=== PATIENT | female | born 1940 | race Caucasian/White ===

== ENCOUNTER → 2016-05-05 | Outpatient (CLI) | payer BC ==
--- NOTE | 2016-05-05 15:37 | MAMMOGRAPHY REPORT ---
BILATERAL DIGITAL SCREENING MAMMOGRAM WITH CAD: 05/05/2016 CLINICAL HISTORY: Routine screening. Patient has no complaints. TECHNIQUE: Bilateral CC and MLO views were obtained. Current study was also evaluated with a Comput er Aided Detection (CAD) system. COMPARISON: Comparison is made to exams dated: 05/02/2015 mammogram, 04/28/2013 mammogram, 05/01/2014 ma mmogram, 04/22/2012 mammogram, 04/21/2011 mammogram, and 04/19/2010 mammogram - [facility] enter. BREAST COMPOSITION: There are scattered areas of fibroglandular density in both breasts. FINDINGS: The MLO views are suboptimal due to inability the patient adequately position for the exam , despite several repositioning attempts. There are stable punctate benign-appearing microcalcifica tions in the breasts. No suspicious mass, architectural distortion or cluster of suspicious microca lcifications is seen. IMPRESSION: ACR BI-RADS CATEGORY 1: NEGATIVE There is no mammographic evidence of malignancy. A 1 year screening mammogram is recommended. The p atient will receive written notification of the results. Approximately 10% of breast cancers are not detected with mammography. A negative mammographic repor t should not delay biopsy if a clinically suggestive mass is present. Zunilda Saucedo M.D. ay/:05/05/2016 14:47:45 Camera Control Operator: Gina CHRISTINA(Frank)(M), [facility] letter sent: Normal 1/2 BI-RADS Code: ACR BI-RADS Category 1: Negative
== END | disposition home or self-care (01) ==
LOC: C.MAMM 13:17
PROVIDERS: ATTEND Family Medicine
DX: Z12.31 Encounter for screening mammogram for malignant neoplasm of breast (principal)

== ENCOUNTER → 2017-05-07 | Outpatient (CLI) | payer BC ==
[~2017-05-07] MED LIST: CALC-51 PO; CYCL0.052 OPB
--- NOTE | 2017-05-07 14:30 | MAMMOGRAPHY REPORT ---
BILATERAL DIGITAL SCREENING MAMMOGRAM TOMOSYNTHESIS WITH CAD: 05/07/2017 CLINICAL HISTORY: Routine screening. Patient has no complaints. TECHNIQUE: Breast tomosynthesis in addition to standard 2D mammography was performed. Current study was also evaluated with a Computer Aided Detection (CAD) system. COMPARISON: Comparison is made to exams dated: 05/05/2016 mammogram, 05/02/2015 mammogram, 05/01/2014 mamm ogram, 04/28/2013 mammogram, 04/22/2012 mammogram, and 04/21/2011 mammogram - [facility] er. BREAST COMPOSITION: There are scattered areas of fibroglandular density in both breasts. FINDINGS: No suspicious masses, calcifications, or areas of architectural distortion are noted in ei ther breast. There has been no significant interval change compared to prior exams. IMPRESSION: ACR BI-RADS CATEGORY 1: NEGATIVE There is no mammographic evidence of malignancy. A 1 year screening mammogram is recommended. The pa tient will receive written notification of the results. Approximately 10% of breast cancers are not detected with mammography. A negative mammographic report should not delay biopsy if a clinically suggestive mass is present. Alesia Yun M.D. ah/:05/07/2017 13:41:02 Finisher Plate: Karmen CHRISTINA(Frank)(M), [facility] letter sent: Normal 1/2 BI-RADS Code: ACR BI-RADS Category 1: Negative
== END | disposition home or self-care (01) ==
LOC: C.MAMM 12:56
PROVIDERS: ATTEND Family Medicine
DX: Z12.31 Encounter for screening mammogram for malignant neoplasm of breast (principal)

== ENCOUNTER → 2017-05-11 | Day surgery (SDC) | payer BC ==
[2017-04-13 13:40] VITALS: Ht 167.6 cm; Wt 63.6 kg
[~2017-05-11] VITALS: Ht 167.6 cm; Wt 63.6 kg
[~2017-05-11] MED LIST changes: +500ML BSS 0.3ML EPI 1:1000PF IRRIG ONE; +ACETAMINOPHEN 325 MG TAB PO PRN; +AMVISC PLUS 0.8ML SYRINGE INT OCU ONE; +ATROPINE SULFATE 0.1 MG/ML 5ML SYR IV PRN; +BRIMONIDINE TART 0.2% OP SOLN PER DROP CHARGE ONE; +BSS FLUSH ONE; +ENDOCOAT 0.85ML SYRINGE INT OCU ONE; +EpHEDrine SULFATE INJ 50 MG/ML AMP IV PRN; +EpINEphrine INJ 1MG/ML AMP 1 MG/ML AMP ONE; +LACTATED RINGER'S 1000ML 500 ML IV SCH; +LIDOCAINE 4% OP SOLN DROP CHARGE ONE; +LIDOCAINE 4% OP SOLN DROP CHARGE OPL SCH; +LIDOCAINE HCL 1% MPF 2 ML VIAL ONE; +MIDAZOLAM HCL 1 MG/ML 2ML VIAL ONE; +MOXIFLOXACIN OPH SOLN PER DROP CHARGE ONE; +POVIDONE-IODINE OP SOLN 30 ML BTL ONE; +PROPARACAINE 0.5% OP SOLN PER DROP CHARGE OPL SCH; +PROPARACAINE HCL 0.5% OP SOLN 15 ML BTL OPL ONE; +TOBRAMYCIN/DEXAMETHASONE OPH OINT PER APPLN CHARGE ONE
[2017-05-11] MEDS: PHENYLEPHRINE HCL 2.5% OP SOLN PER DROP CHARGE OPL SCH ×2 (07:15→07:20)
[2017-05-11] MEDS: TROPICAMIDE 1% OP SOLN PER DROP CHARGE OPL SCH ×2 (07:16→07:21)
[2017-05-11] MEDS: CYCLOPENTOLATE HCL 1% OP SOLN PER DROP CHARGE OPL SCH ×2 (07:17→07:22)
[2017-05-11] MEDS: KETOROLAC 0.5% OP SOLN PER DROP CHARGE OPL SCH ×2 (07:18→07:23)
[2017-05-11] MEDS: MOXIFLOXACIN OPH SOLN PER DROP CHARGE OPL SCH ×2 (07:19→07:34)
--- NOTE | 2017-05-11 07:34 | History & Physical Bridge - SC ---
H&P Re-Evaluation Bridge Note: I have examined the patient, reviewed the History & Physical and in the interval since the performance of the History & Physical I have noted the following changes of clinical significance: having femtosecond laser
--- NOTE | 2017-05-11 08:44 | [facility] Post Operative Brief Note ---
Immediate Operative Summary Operative Date May 11, 2017. Pre-Operative Diagnosis Cataract left eye Post-Operative Diagnosis same as preop Procedure(s) Performed Left Cataract Phacoemulsification With Intraocular Lens Implant; Toric Lens and femtosecond laser Surgeon Dr. Martinez Supply Analyst Surgeon(s) none Estimated Blood Loss 0ml Findings Consistent with Post-Op Diagnosis Specimens none Drains None Anesthesia Type MAC Complication(s) none Disposition Accompanied Pt To Recovery: no Disposition: Recovery Room / PACU
--- NOTE | 2017-05-11 08:45 | Discharge Instructions-SurgCtr ---
Discharge Instructions Date of Service May 11, 2017. Visit Reason for Visit: Cataract Left Eye Discharge Discharge Diagnosis / Problem: cataract left eye Discharge Goals Goal(s): Improve function Activity Recommendations Activity Limitations: per Instructions/Follow-up section Lifting Limitations: no more than 5 pounds Anesthesia . Post Anesthesia Instructions: If you have had General Anesthesia or IV Sedation: * Do not drive today. * Resume driving when surgeon permits. * Do not make important decisions or sign legal documents today. * Call surgeon for: 1. Temperature elevations greater than 101 degrees F. 2. Uncontrollable pain. 3. Excessive bleeding. 4. Persistent nausea and vomiting. 5. Medication intolerance (nausea, vomiting or rash). * For nausea and vomiting use only clear liquids such as: tea, soda, bouillon until nausea subsides, then gradually increase diet as tolerated. * If you have any concerns or questions, call your surgeon's office. If physician is unavailable and it is an emergency, call 911 or go to the nearest emergency room. . Instructions / Follow-Up Instructions / Follow-Up ACTIVITY RECOMMENDATIONS: * Light activities * You may walk outside, read, watch television. * Mild irritation and blurred vision are common for the first few days, redness around the white part of the eye is common. MEDICATIONS: Resume previous medications unless instructed otherwise by your surgeon. Eye drops (today and tomorrow): Polytrim - one drop in operative eye every 2 hours while awake Prednisolone 1% - one drop in operative eye every 2 hours while awake Bromfenac - one drop in operative eye once daily SPECIAL CARE INSTRUCTIONS: * If any problems or concerns, please call Dr. Martinez's office at . * Keep plastic shield taped over eye to sleep at night. * Keep plastic shield taped over eye except to administer eye drops. * Keep plastic shield on until office visit the following day. FOLLOW UP VISIT: Follow-up with Dr. Martinez in the [place] office as scheduled. If not already scheduled, please call the office at . Diet Recommendations Home Diet: resume previous diet Procedures Procedures Performed: Left Cataract Phacoemulsification With Intraocular Lens Implant; Toric Lens and femtosecond laser Pending Studies Studies pending at discharge: no Medical Emergencies . Who to Call and When: Medical Emergencies: If at any time you feel your situation is an emergency, please call 911 immediately. . Non-Emergent Contact Non-Emergency issues call your: Gear Machinist . . "Provider Documentation" section prepared by Angel Luis Martinez. .
[2017-05-11 08:46] VITALS: TEMP 36.5
--- NOTE | 2017-05-11 08:49 | [facility] Operative Report ---
Operative Report Operative Date May 11, 2017. Pre-Operative Diagnosis Cataract and astigmatism left eye Post-Operative Diagnosis same as preop Procedure(s) Performed Left Cataract Phacoemulsification With Intraocular Lens Implant; Toric Lens and femtosecond laser Surgeon Dr. Martinez Window Cleaner Surgeon(s) none Estimated Blood Loss 0ml Findings cataract left eye Specimens none Drains None Anesthesia Type MAC Complication(s) none Disposition no Recovery Room / PACU Indications decreased vision and astigmatism left eye Description of Procedure After informed consent was obtained in the holding area the patient was wheeled back to the femtosecond laser room. The left eye was docked with the laser and the capsulorrhexis, prechop of the lens, and primary incision at the 3 o'clock position of the left eye were performed. The patient was then taken to the operating room where cardiac monitoring leads and oxygen by nasal cannula was administered by Anesthesia. Gentle IV sedation was given, and the patient's left eye was prepped and draped in usual sterile fashion. A wire lid speculum was placed into the left eye and the operating microscope was swung into position. Using 0.12 forceps and a Supersharp blade a paracentesis port was made 2 o'clock hours away from the 3 o'clock position of the patient's left eye. 1% non-preserved Lidocaine was then injected into the anterior chamber for anesthesia. Endocoat was injected into the anterior chamber. A Trey spatula was then used to enter the shelved clear corneal incision at the 3 o'clock position of the left eye. Amvisc was injected into the anterior chamber and Utrata forceps were used to remove the curvilinear capsulorrhexis. BSS on a hydrodissection cannula was used to hydrodissect the lens nucleus away from the capsular bag. The phacoemulsification handpiece was then used in a stop and chop fashion to remove the lens nucleus. The irrigation and aspiration handpiece was then used to remove the residual cortical material. Amvisc was injected into the capsular bag and anterior chamber and a HETAL [id number] 15.0 Diopter intraocular lens was injected into the capsular bag. Irrigation and aspiration handpiece was used to remove the residual viscoelastic material. The lens was aligned along the 167 degree axis of the left eye. The wounds were hydrated and noted to be watertight. The wire lid speculum was removed from the eye. Vigamox, Brimonidine, and TobraDex ointment were placed on the eye and it was shielded. It should be noted that EndoCoat was used extensively during the case to protect the cornea endothelium. DISPOSITION: The patient tolerated the procedure well and was wheeled to the post anesthesia care unit in stable condition. I attest to the content of the Intraoperative Record and any orders documented therein. Any exceptions are noted below. I attest to the content of the Intraoperative Record and any orders documented therein. Any exceptions are noted below.
[2017-05-11 09:04] VITALS: BP 130/81; PULSE 67; O2SAT 100
--- NOTE | 2017-05-11 09:14 | Anesthesia Progress Nt - [facility] ---
Anesthesia Post Op Note Date & Time May 11, 2017 at 09:14 Vital Signs Pain Intensity: 0 Vital Signs Past 12 Hours Date Time Temp Pulse Resp B/P (MAP) Pulse Ox O2 Delivery O2 Flow Rate FiO2 05/11/17 09:04 67 16 130/81 (97) 100 Room Air 05/11/17 08:46 36.5 72 16 151/87 (108) 99 Room Air 05/11/17 08:17 83 18 131/92 98 Room Air 05/11/17 08:14 75 18 133/76 98 Room Air 05/11/17 07:03 36.5 79 20 156/91 (112) 99 Room Air Notes Mental Status: alert / awake / arousable, participated in evaluation Pt Amnestic to Procedure: Yes Nausea / Vomiting: adequately controlled Pain: adequately controlled Airway Patency, RR, SpO2: stable & adequate BP & HR: stable & adequate Hydration State: stable & adequate Anesthetic Complications: no major complications apparent
== END | disposition home or self-care (01) ==
LOC: X.SURG 06:49
PROVIDERS: ATTEND Ophthalmology
DX: H25.12 Age-related nuclear cataract, left eye (principal); H52.202 Unspecified astigmatism, left eye

== ENCOUNTER → 2017-06-15 | Day surgery (SDC) | payer BC ==
[2017-05-22 13:33] VITALS: Ht 167.6 cm; Wt 63.6 kg
[~2017-06-15] VITALS: Ht 167.6 cm; Wt 63.6 kg
[~2017-06-15] MED LIST changes: -LIDOCAINE 4% OP SOLN DROP CHARGE OPL SCH; +LIDOCAINE 4% OP SOLN DROP CHARGE OPR SCH; -PROPARACAINE 0.5% OP SOLN PER DROP CHARGE OPL SCH; +PROPARACAINE 0.5% OP SOLN PER DROP CHARGE OPR SCH; -PROPARACAINE HCL 0.5% OP SOLN 15 ML BTL OPL ONE; +PROPARACAINE HCL 0.5% OP SOLN 15 ML BTL OPR ONE
[2017-06-15] MEDS: PHENYLEPHRINE HCL 2.5% OP SOLN PER DROP CHARGE OPR SCH ×2 (08:39→08:44)
[2017-06-15] MEDS: TROPICAMIDE 1% OP SOLN PER DROP CHARGE OPR SCH ×2 (08:40→08:45)
[2017-06-15] MEDS: CYCLOPENTOLATE HCL 1% OP SOLN PER DROP CHARGE OPR SCH ×2 (08:41→08:46)
[2017-06-15] MEDS: KETOROLAC 0.5% OP SOLN PER DROP CHARGE OPR SCH ×2 (08:42→08:47)
[2017-06-15] MEDS: MOXIFLOXACIN OPH SOLN PER DROP CHARGE OPR SCH ×2 (08:43→08:53)
--- NOTE | 2017-06-15 09:09 | History & Physical Bridge - SC ---
H&P Re-Evaluation Bridge Note: I have examined the patient, reviewed the History & Physical and in the interval since the performance of the History & Physical I have noted the following changes of clinical significance: No changes noted
--- NOTE | 2017-06-15 10:10 | [facility] Post Operative Brief Note ---
Immediate Operative Summary Operative Date Jun 15, 2017. Pre-Operative Diagnosis Right eye cataract Post-Operative Diagnosis Same as preop Procedure(s) Performed Right Cataract Phacoemulsification With Intraocular Lens Implant: Toric Lens and femtosecond laser Surgeon Dr. Martinez Production Miner Surgeon(s) None Estimated Blood Loss 0 mL Findings Consistent with Post-Op Diagnosis Fluids (cc crystalloids) see anesthesia record Specimens None Drains None Anesthesia Type MAC Complication(s) none Disposition Accompanied Pt To Recovery: no Disposition: Recovery Room / PACU
--- NOTE | 2017-06-15 10:11 | Discharge Instructions-SurgCtr ---
Discharge Instructions Date of Service Jun 15, 2017. Visit Reason for Visit: Cataract Right Eye Discharge Discharge Diagnosis / Problem: cataract right eye Discharge Goals Goal(s): Improve function Activity Recommendations Activity Limitations: per Instructions/Follow-up section Lifting Limitations: no more than 5 pounds Anesthesia . Post Anesthesia Instructions: If you have had General Anesthesia or IV Sedation: * Do not drive today. * Resume driving when surgeon permits. * Do not make important decisions or sign legal documents today. * Call surgeon for: 1. Temperature elevations greater than 101 degrees F. 2. Uncontrollable pain. 3. Excessive bleeding. 4. Persistent nausea and vomiting. 5. Medication intolerance (nausea, vomiting or rash). * For nausea and vomiting use only clear liquids such as: tea, soda, bouillon until nausea subsides, then gradually increase diet as tolerated. * If you have any concerns or questions, call your surgeon's office. If physician is unavailable and it is an emergency, call 911 or go to the nearest emergency room. . Instructions / Follow-Up Instructions / Follow-Up ACTIVITY RECOMMENDATIONS: * Light activities * You may walk outside, read, watch television. * Mild irritation and blurred vision are common for the first few days, redness around the white part of the eye is common. MEDICATIONS: Resume previous medications unless instructed otherwise by your surgeon. Eye drops (today and tomorrow): Polytrim - one drop in operative eye every 2 hours while awake Prednisolone 1% - one drop in operative eye every 2 hours while awake Bromfenac - one drop in operative eye once daily SPECIAL CARE INSTRUCTIONS: * If any problems or concerns, please call Dr. Martinez's office at . * Keep plastic shield taped over eye to sleep at night. * Keep plastic shield taped over eye except to administer eye drops. * Keep plastic shield on until office visit the following day. FOLLOW UP VISIT: Follow-up with Dr. Martinez in the [place] office as scheduled. If not already scheduled, please call the office at . Diet Recommendations Home Diet: resume previous diet Procedures Procedures Performed: Right Cataract Phacoemulsification With Intraocular Lens Implant: Toric Lens and femtosecond laser Pending Studies Studies pending at discharge: no Medical Emergencies . Who to Call and When: Medical Emergencies: If at any time you feel your situation is an emergency, please call 911 immediately. . Non-Emergent Contact Non-Emergency issues call your: Velvet Steamer . . "Provider Documentation" section prepared by Angel Luis Martinez. .
[2017-06-15 10:13] VITALS: TEMP 36.7
--- NOTE | 2017-06-15 10:14 | [facility] Operative Report ---
Operative Report Operative Date Jun 15, 2017. Pre-Operative Diagnosis Right eye cataract Post-Operative Diagnosis Same as preop Procedure(s) Performed Right Cataract Phacoemulsification With Intraocular Lens Implant: Toric Lens and femtosecond laser Surgeon Dr. Martinez On Awake Counselor Surgeon(s) None Estimated Blood Loss 0 mL Findings cataract right eye Fluids see anesthesia record Specimens None Drains None Anesthesia Type MAC Complication(s) none Disposition no Recovery Room / PACU Indications decreased vision right eye Description of Procedure After informed consent was obtained in the holding area the patient was wheeled back to the femtosecond laser room. The laser performed the capsulorrhexis, prechop of the lens, and primary incision at the 9 o'clock position of the right eye. The patient was then taken to the operating room where cardiac monitoring leads and oxygen by nasal cannula was administered by Anesthesia. Gentle IV sedation was given, and the patient's right eye was prepped and draped in usual sterile fashion. A wire lid speculum was placed into the right eye and the operating microscope was swung into position. Using 0.12 forceps and a Supersharp blade a paracentesis port was made 3 o'clock hours away from the 9 o'clock position of the patient's right eye. 1% non-preserved Lidocaine was then injected into the anterior chamber for anesthesia. Enocoat was injected into the anterior chamber. A Trey spatula was then used to enter the shelved clear corneal incision at the 9 o'clock position of the right eye. Amvisc was injected into the anterior chamber and a cystotome and Utrata forceps were used to perform a curvilinear capsulorrhexis. BSS on a hydrodissection cannula was used to hydrodissect the lens nucleus away from the capsular bag. The phacoemulsification handpiece was then used in a stop and chop fashion to remove the lens nucleus. The irrigation and aspiration handpiece was then used to remove the residual cortical material. Amvisc was injected into the capsular bag and anterior chamber and a HETAL [id number] 16.5 Diopter intraocular lens was injected into the capsular bag. Irrigation and aspiration handpiece was used to remove the residual viscoelastic material. The lens was aligned along the 17 degree meridian with markings made in preop. The wounds were hydrated and noted to be watertight. The wire lid speculum was removed from the eye. Vigamox, Brimonidine, and TobraDex ointment were placed on the eye and it was shielded. It should be noted that EndoCoat was used extensively during the case to protect the cornea endothelium. DISPOSITION: The patient tolerated the procedure well and was wheeled to the post anesthesia care unit in stable condition. I attest to the content of the Intraoperative Record and any orders documented therein. Any exceptions are noted below. I attest to the content of the Intraoperative Record and any orders documented therein. Any exceptions are noted below.
[2017-06-15 10:31] VITALS: BP 136/82; PULSE 77; O2SAT 96
--- NOTE | 2017-06-15 10:36 | Anesthesia Progress Nt - [facility] ---
Anesthesia Post Op Note Date & Time Jun 15, 2017 at 10:36 Vital Signs Pain Intensity: 0 Vital Signs Past 12 Hours Date Time Temp Pulse Resp B/P (MAP) Pulse Ox O2 Delivery O2 Flow Rate FiO2 06/15/17 10:31 77 16 136/82 (100) 96 Room Air 06/15/17 10:13 36.7 74 16 155/80 (105) 98 Room Air 06/15/17 08:27 36.4 81 16 158/99 (118) 99 Room Air Notes Mental Status: alert / awake / arousable, participated in evaluation Pt Amnestic to Procedure: Yes Nausea / Vomiting: adequately controlled Pain: adequately controlled Airway Patency, RR, SpO2: stable & adequate BP & HR: stable & adequate Hydration State: stable & adequate Anesthetic Complications: no major complications apparent
== END | disposition home or self-care (01) ==
LOC: X.SURG 08:02
PROVIDERS: ATTEND Ophthalmology
DX: H25.11 Age-related nuclear cataract, right eye (principal); Z91.013 Allergy to seafood

== ENCOUNTER 2024-11-12 13:29 | Observation (INO) ==
--- NOTE | 2024-11-12 13:34 | Emergency Department Note ---
ED Provider Note HISTORY OF PRESENT ILLNESS: Patient is an 83-year-old female presenting with strokelike symptoms. EMS called prehospital due to concern for potential stroke. They report that they were called to the patient's residence to assess her after having sudden onset of dizziness and lightheadedness. On their assessment at 1245, they noticed that the patient was having significant weakness in her right upper and right lower extremity and had profound drift on assessment. They state the patient was also having aphasia. Patient was alerted as a stroke prehospital. On arrival to the emergency department, the patient's symptoms have almost completely resolved. She is not on any anticoagulation or antiplatelet therapy. Has had previous surgery for removal of a meningioma. Patient denies any chest pain or shortness of breath. Denies recent falls or head injury. ROS: as above PHYSICAL EXAM: Constitutional: Patient appears in no acute distress. HENT: Head: Normocephalic and atraumatic. Eyes: EOMI, PERRL Mouth/Throat: Mucous membranes moist. Neck: Trachea midline. Neck supple. Cardiovascular: RRR, No murmurs, rubs or gallops. Intact distal pulses. Pulmonary/Chest: No respiratory distress. Breath sounds clear and equal bilaterally. No wheezes or rales. Abdominal: Abdomen soft, no tenderness, rebound or guarding. Musculoskeletal: No edema, tenderness or deformity noted. Skin: Warm and dry. No rash, erythema, pallor or cyanosis Psychiatric: Appropriate mood and affect for situation. Neurological: Alert and keenly responsive. Facies symmetric. Able to raise eyebrows, close eyes, smile, puff mouth, stick out tongue, move tongue left and right and raise palate symmetrically. Able to shrug shoulders. PERRLA. SILT to forehead below eye and at jawline. Can hear soft noise bilaterally. Strength 5/5 in bilateral upper and lower extremities. SILT throughout bilateral upper and lower extremities. MDM: - Vitals signs showed [] - History obtained via [patient, family, EMS, etc]. History as above. - Chronic conditions affecting care: [] - Differential diagnoses include, but are not limited to: [] - Order placed for continuous cardiac monitoring. At this time, monitor showed rate of [] with [] rhythm, per my interpretation. - External medical records reviewed. Showed [EMS sheet, outpt notes, outpt imaging] - EKG image interpreted by myself showed [] - Laboratory workup interpreted by myself showed [] - Imaging interpretation by myself [] - Tests considered but not ordered [CT, XR] - Risk stratification tools [] - Discussion was had with casey saw operator about patient's case and need for admission [] - Hospitalist consulted for admission at [] or []I do not feel the patient requires admission at this time. Will be discharged home with specific return instructions. [] - Patient was given [meds] in the ER. On reassessment, [] - Prescriptions considered [] - Social determinants of health impacting treatment: [homelessness; no medical insurance; addition] - [] - Patient remained stable throughout the visit. Results were discussed with the patient and patient's family. They were given the opportunity to ask questions. Had lengthy discussion with patient about supportive care return precautions. No new prescriptions. [] No changes to medications. Patient to follow up with primary care physician for further evaluation and management. All questions answered. Patient agreeable plan. - Prior to disposition, care of patient was checked out to [] at [] following a discussion of the patient's course. - Patient admitted to [] service for further evaluation and management. ASSESSMENT AND PLAN: Diagnosis: [] Plan: [] Results & Data (ED) Administered Medications Discontinued Medications Ioversol (Optiray 320 125ml) 112 ml IV ONCE ONE Stop: 11/12/24 13:35 Last Admin: 11/12/24 13:35 Dose: 112 ml Documented By: JOANN Discharge Plan Visit Data Chief Complaint: Stroke Alert Stated Complaint: STROKE ALERT ED Provider: Myrna Baldwin Forms Stand [facility]
[2024-11-12] MEDS: OPTIRAY 320 125ml IV ONE (13:35)
--- NOTE | 2024-11-12 13:47 | Emergency Department Note ---
Impression & Plan Stroke-like symptoms ED Provider Note HISTORY OF PRESENT ILLNESS: Patient is an 84-year-old female presenting with strokelike symptoms. EMS called prehospital due to concern for potential stroke. They report that they were called to the patient's residence to assess her after having sudden onset of dizziness and lightheadedness. On their assessment at 1245, they noticed that the patient was having significant weakness in her right upper and right lower extremity and had profound drift on assessment. They state the patient was also having aphasia. Patient was alerted as a stroke prehospital. On arrival to the emergency department, the patient's symptoms have almost completely resolved. She is not on any anticoagulation or antiplatelet therapy. Has had previous surgery for removal of a meningioma. Reports surgery was 6 years ago. Patient denies any chest pain or shortness of breath. Denies recent falls or head injury. ROS: as above PHYSICAL EXAM: Constitutional: Patient appears in no acute distress. HENT: Head: Normocephalic and atraumatic. Eyes: EOMI, PERRL Mouth/Throat: Mucous membranes moist. Neck: Trachea midline. Neck supple. Cardiovascular: RRR, No murmurs, rubs or gallops. Intact distal pulses. Pulmonary/Chest: No respiratory distress. Breath sounds clear and equal bilaterally. No wheezes or rales. Abdominal: Abdomen soft, no tenderness, rebound or guarding. Musculoskeletal: No edema, tenderness or deformity noted. Skin: Warm and dry. No rash, erythema, pallor or cyanosis Psychiatric: Appropriate mood and affect for situation. Neurological: Alert and keenly responsive. Facies symmetric. Able to raise eyebrows, close eyes, smile, puff mouth, stick out tongue, move tongue left and right and raise palate symmetrically. Able to shrug shoulders. PERRLA. SILT to forehead below eye and at jawline. Can hear soft noise bilaterally. Strength 5/5 in bilateral upper and lower extremities. SILT throughout bilateral upper and lower extremities. MDM: - Vitals signs stable. Though patient symptoms started within the last hour, she is having resolution of her symptoms and is an NIH stroke scale score of 0 on arrival to the ER. Thus she is not a TNK candidate. - History obtained via patient and EMS. History as above. - Chronic conditions affecting care: Meningioma - Differential diagnoses include, but are not limited to: CVA; TIA; intracranial hemorrhage; ACS; dysrhythmia; electrolyte abnormality; hypoglycemia - Order placed for continuous cardiac monitoring. At this time, monitor showed rate of 99 bpm with normal sinus rhythm, per my interpretation. - External medical records reviewed. - On reassessment at 2:15 PM, the patient is now having acute difficulties speaking and having some difficulties moving her right upper extremity. -[facility] 14[facility]. He requested that the patient be placed in front of the telestroke cart for assessment. - EKG image interpreted by myself showed normal sinus rhythm. Rate 93 bpm. QT 348. No acute ischemic changes - Laboratory workup interpreted by myself showed normal WBC; normal PT/INR; stable electrolytes; normal troponin - CXR image reviewed by myself negative for pneumonia, per my interpretation. Radiology notes some mild pulmonary edema. - CT head wo contrast ridging reviewed by myself is negative for intracranial hemorrhage, per my interpretation. Radiology notes no acute pathology. - CTA head/neck negative for acute pathology. Noted to have an incidental thyroid nodule. - Telestroke physician, Dr. Hooper, evaluated the patient and called me back at 14:36. He states that the patient's symptoms are mild enough that she does not require any thrombectomy. States the patient declined any TNK at this time. Recommended the patient be admitted for further stroke workup including an MRI. Recommends the patient receive 81 mg of aspirin and 300 mg of Plavix. He states he will write a note for the patient's chart. - Given 300 mg PO plavix and 81 mg aspirin. - Discussion was had with continuous pillowcase cutter about patient's case and need for admission - Hospitalist consulted for admission - [facility]. I have personally spent 46 minutes of critical care time in the direct management of this patient. This includes bedside care, interpretation of diagnostic studies, and testing, discussion with consultants, patient, and family members, and other required patient management activities. This 46 minutes is in excess of all separately billable procedures. ASSESSMENT AND PLAN: Diagnosis: Strokelike symptoms Plan: Admit Past Med/Surg History Problem List (Updated 11/12/24 @ 15:27 by Myrna Baldwin MD) Stroke-like symptoms (Acute) MRSA (methicillin resistant staph aureus) culture positive Venous ulcer of left leg (Acute) Chronic venous insufficiency (Chronic) Social History Smoking Status: Never smoker Hx Alcohol Use: Yes Alcohol Intake Frequency: Monthly or Less Hx Substance Use: No Preferred Language: Irish Communication Ability: Effective Visual Impairment: No Limitations Hearing Ability: Normal Risk Engineer Required: No Beliefs That Will Affect Care: None marital status: Current Living Situation: Spouse current occupational status: retired How many Children do You have: 2 How many Children do You have Comment: Not local Feels Safe at Home: Yes Diet: regular caffeine: Yes during the past year weight has: decreased > 10 lbs Dental Care, Regularly: Yes Physical Activity Frequency: 1-2 Times per Week Seatbelt Use: always Sunscreen Use: No Assistive Devices: Cane and Glasses Allergies Allergies Allergy/AdvReac Type Severity Reaction Status Date / Time No Known Drug Allergies Allergy Unknown . Verified 01/07/24 11:09 Fish Allergy Unknown TONGUE Uncoded 01/07/24 11:09 SWELLING WITH [facility] FAM[facility] Home Meds Home Medications Medication Instructions Recorded Confirmed Saccharomyces boulardii 250 mg 250 mg PO BID 07/17/23 11/12/24 capsule (Digest Probiotic (S.boulardii)) acetaminophen 325 mg capsule 975 mg PO Q6H PRN Pain 07/17/23 11/12/24 (Tylenol) alendronate 70 mg tablet (Fosamax) 70 mg PO .Weekly 07/17/23 11/12/24 amoxicillin 500 mg capsule 2,000 mg PO UD PRN dental 07/17/23 11/12/24 appointment cholecalciferol (vitamin D3) 25 25 mcg PO DAILY 07/17/23 11/12/24 mcg (1,000 unit) capsule cyclosporine 0.05 % eye drops 0 drp ophthalmic (eye) BID 07/17/23 11/12/24 (Restasis MultiDose) fexofenadine 180 mg tablet 180 mg PO DAILY 07/17/23 11/12/24 (Allergy Relief (fexofenadine)) Results & Data (ED) Vital Signs Vital Signs - 24 hr 11/12/24 13:35 11/12/24 13:35 11/12/24 13:35 Temperature Temperature Source Pulse Rate Pulse Rate [Apical] Respiratory Rate Blood Pressure Blood Pressure [Right Arm] Blood Pressure Mean Blood Pressure Mean [Right Arm] Pulse Oximetry Oxygen Delivery Method Room Air Room Air Room Air Sepsis New/Unexplained Change in Mental Status Sepsis Action Taken by Nursing 11/12/24 13:53 11/12/24 14:05 11/12/24 14:15 Temperature 36.7 C Temperature Source Oral Pulse Rate 95 H Pulse Rate [Apical] 94 H 96 H Respiratory Rate 19 21 16 Blood Pressure 188/105 H Blood Pressure [Right Arm] 182/102 H 171/105 H Blood Pressure Mean 132 Blood Pressure Mean [Right Arm] 128 127 Pulse Oximetry 98 97 97 Oxygen Delivery Method Room Air Room Air Room Air Sepsis New/Unexplained Change in Mental Status No Sepsis Action Taken by Nursing No Action Required 11/12/24 14:30 11/12/24 14:40 11/12/24 14:45 Temperature Temperature Source Pulse Rate 98 H Pulse Rate [Apical] 101 H 99 H Respiratory Rate 23 19 Blood Pressure Blood Pressure [Right Arm] 168/111 H 167/122 H Blood Pressure Mean Blood Pressure Mean [Right Arm] 130 137 Pulse Oximetry 99 98 Oxygen Delivery Method Room Air Room Air Sepsis New/Unexplained Change in Mental Status Sepsis Action Taken by Nursing Laboratory Data 11/12/24 13:57 11/12/24 14:00 Lab Results 11/12/24 11/12/24 11/12/24 Range/Units 13:57 14:00 14:06 WBC 4.97 (4.8-10.8) K/ul RBC 4.33 (4.20-5.40) M/uL Hgb 12.7 (12.0-16.0) g/dl POC Hgb 13.6 (12.0-16.0) g/dl Hct 38.6 (37.0-47.0) % POC Hct 40 (37-47) % MCV 89.1 (80.0-100.0) fL MCH 29.3 (25.0-34.0) pg MCHC 32.9 (32.0-36.0) g/dL RDW Std Deviation 44.3 (36.4-46.3) fL RDW Coeff of Dawna 13.5 (11.5-14.5) % Plt Count 164 (130-400) K/uL MPV 10.3 (9.4-12.4) fL PT 10.3 (9.0-12.0) Seconds INR 0.9 (0.9-1.1) APTT 25 (21-31) Seconds PTT Ratio 0.9 POC Sodium 137 (135-144) mmol/L Sodium 135 L (136-145) mmol/L POC Potassium 4.3 (3.3-5.0) mmol/L Potassium 4.6 (3.5-5.1) mmol/L POC Chloride 101 (101-112) mmol/L Chloride 103 (98-107) mmol/L Carbon Dioxide 28 (21-32) mmol/L POC Total CO2 26 (24-31) mmol/L Anion Gap 4 (3-11) POC Anion Gap 15.0 L (16-25) mmol/L POC BUN 21 H (7-18) mg/dl BUN 20 (6-23) mg/dl Creatinine 0.58 L (0.6-1.2) mg/dl POC Creatinine 0.6 (0.6-1.3) mg/dl Est Cr Clr Drug Dosing 62.4 ml/min eGFR 88.08 BUN/Creatinine Ratio 34.5 H (10-20) Glucose 111 H (70-99(Fasting)) mg/dl POC Glucose (other) 105 H (70-99) mg/dl Calcium 9.2 (8.6-10.3) mg/dl POC Ioniz Calcium Douglas 1.20 (1.12-1.32) mmol/l Magnesium 1.8 (1.7-2.4) mg/dl Total Bilirubin 0.5 (0.2-1.0) mg/dl AST 20 (13-39) U/L ALT 14 (7-52) U/L Alkaline Phosphatase 64 (34-104) U/L Troponin I High Sens 3.1 (0-14) pg/ml Total Protein 6.7 (6.0-8.3) gm/dl Albumin 3.9 (3.4-5.0) gm/dl Globulin 2.8 (2.5-4.0) gm/dl Albumin/Globulin Ratio 1.4 (0.9-2) Administered Medications Discontinued Medications Aspirin (Aspirin Chew 324 Mg) 81 mg PO NOW STA Stop: 11/12/24 15:20 Last Admin: 11/12/24 15:27 Dose: Not Given Documented By: THEO Aspirin (Aspirin 81 Mg Chew) Confirm Administered Dose 81 mg .ROUTE .STK-MED ONE Stop: 11/12/24 15:26 Last Admin: 11/12/24 15:27 Dose: Not Given Documented By: THEO Clopidogrel Bisulfate (Clopidogrel Bisulfate 300 Mg Tab) 300 mg PO NOW STA Stop: 11/12/24 15:20 Last Admin: 11/12/24 15:26 Dose: 300 mg Documented By: THEO Ioversol (Optiray 320 125ml) 112 ml IV ONCE ONE Stop: 11/12/24 13:35 Last Admin: 11/12/24 13:35 Dose: 112 ml Documented By: JOANN Imaging Data Radiologist's Impression: Head CT 11/12/24 13:31 Clinical History: Possible stroke Technique: Axial computed tomography images were obtained of the brain without intravenous contrast. Findings: There is diffuse cerebral atrophy, within expected limits for the patient's age. Areas of decreased attenuation are seen within the periventricular white matter, likely representing chronic small vessel ischemic disease. There is an old right parietal lobe infarct. There is no definite sign of acute infarction. No intracranial hemorrhage is evident. No definite mass lesion is seen on this noncontrast examination. There is no midline shift or other form of herniation. No hydrocephalus is seen. No fracture is identified. The orbits and the visualized paranasal sinuses appear unremarkable. The mastoid air cells appear clear. Impression: 1. Cerebral atrophy and chronic small vessel ischemic disease 2. Old right parietal lobe infarct 3. No definite acute pathology These findings were discussed with Dr. Baldwin at 1:57 PM on 11/12/2024 Electronically signed by Lio Carroll 11-12-2024 13:58 PM Discharge Plan Visit Data Chief Complaint: Stroke Alert Stated Complaint: STROKE ALERT ED Provider: Myrna Baldwin Discharge Problem: Stroke-like symptoms Condition: Fair Forms Stand Alone Forms: My [employer] Prescriptions Prescriptions: No Action Saccharomyces boulardii [Digest Probiotic (S.boulardii)] 250 mg capsule 250 mg PO BID Patient Comments: 11/12- otc unable to verify alendronate [Fosamax] 70 mg tablet 70 mg PO .Weekly amoxicillin 500 mg capsule 2,000 mg PO UD PRN (Reason: dental appointment) Patient Comments: 11/12- last filled 03/14/24 Rx Instructions: 2,000 mg orally 1 hour prior to dental procedure; cholecalciferol (vitamin D3) 25 mcg (1,000 unit) capsule 25 mcg PO DAILY Patient Comments: 11/12- otc unable to verify acetaminophen [Tylenol] 325 mg capsule 975 mg PO Q6H PRN (Reason: Pain) Patient Comments: 11/12- otc unable to verify fexofenadine [Allergy Relief (fexofenadine)] 180 mg tablet 180 mg PO DAILY Patient Comments: 11/12- otc unable to verify Restasis MultiDose 0.05 % drops 0 drp ophthalmic (eye) BID Patient Comments: last filled 03/27/24 60 day supply #60
[2024-11-12 14:13] LABS: Hematocrit (blood only) 38.6 % (37.0-47.0); Hemoglobin 12.7 g/dl (12.0-16.0); Mean Corpuscular Hemoglobin 29.3 pg (25.0-34.0); Mean Corpuscular Volume 89.1 fL (80.0-100.0); Platelet Count 164 K/uL (130-400); RDW Standard Deviation 44.3 fL (36.4-46.3); Red Blood Count 4.33 M/uL (4.20-5.40); White Blood Count 4.97 K/ul (4.8-10.8)
--- NOTE | 2024-11-12 14:27 | CT Scan Report ---
Clinical History: Possible stroke Technique: Axial computed tomography images were obtained of the brain without intravenous contrast. Findings: There is diffuse cerebral atrophy, within expected limits for the patient's age. Areas of decreased attenuation are seen within the periventricular white matter, likely representing chronic small vessel ischemic disease. There is an old right parietal lobe infarct. There is no definite sign of acute infarction. No intracranial hemorrhage is evident. No definite mass lesion is seen on this noncontrast examination. There is no midline shift or other form of herniation. No hydrocephalus is seen. No fracture is identified. The orbits and the visualized paranasal sinuses appear unremarkable. The mastoid air cells appear clear. Impression: 1. Cerebral atrophy and chronic small vessel ischemic disease 2. Old right parietal lobe infarct 3. No definite acute pathology These findings were discussed with Dr. Baldwin at 1:57 PM on 11/12/2024 Electronically signed by Lio Carroll 11-12-2024 13:58 PM
[2024-11-12 14:31] LABS: Alanine Aminotransferase 14.0 U/L (7-52); Albumin Globulin Ratio 1.4 (0.9-2); Alkaline Phosphatase 64.0 U/L (34-104); Anion Gap 4.0 (3-11); Bilirubin,Total 0.5 mg/dl (0.2-1.0); Blood Urea Nitrogen 20.0 mg/dl (6-23); Calcium 9.2 mg/dl (8.6-10.3); Carbon Dioxide 28.0 mmol/L (21-32); Chloride 103.0 mmol/L (98-107); Creatinine Clr Calc Pharmacy 62.4 ml/min; Globulin 2.8 gm/dl (2.5-4.0); Glucose 111.0 mg/dl (70-99(Fasting)); Magnesium 1.8 mg/dl (1.7-2.4); Potassium 4.6 mmol/L (3.5-5.1); Sodium 135.0 mmol/L (136-145); Total Protein 6.7 gm/dl (6.0-8.3)
[2024-11-12 14:42] LABS: INR 0.9 (0.9-1.1); Partial Thromboplastin Time 25 Seconds (21-31); Prothrombin Time 10.3 Seconds (9.0-12.0)
[2024-11-12] MEDS: CLOPIDOGREL BISULFATE 300 MG TAB PO STA (15:26)
[2024-11-12] MEDS: ASPIRIN 81 MG CHEW ONE (15:27)
[2024-11-12] MEDS: ASPIRIN CHEW 324 MG PO STA (15:27)
[2024-11-12] MEDS: ASPIRIN 81 MG CHEW PO STA (15:28)
--- NOTE | 2024-11-12 16:06 | History & Physical Report ---
Date of Service November 12, 2024 Assessment & Plan (1) Stroke-like symptoms: Plan: Pt has hx of meningioma s/p resection, hx of cerebral amyloid angiopathy, hx of GI bleed/colitis, previously needed IVC filter for RLE DVT Presents with UEs numbness, RLE weakness, slurred speech Symptoms has resolved CT head negat. CTA head and neck negat. ED consulted w/ telestroke - gave pt plavix 300 mg and aspirin 81 mg Will cont. 81 mg daily Will obtain A1c, fasting lipid panel tmrw AM Will obtain brain MRI, echo, stroke work-up, neuro checks Will consult neurology and will specifically need to discuss if to continue both aspirin and plavix given above medical history Thyroid nodules noted on CT - incidental finding - follow up as outpt History of Present Illness Chief Complaint: stroke-like symptoms Primary Care Provider: Lisseth Peterson MD 84 yo F w/ hx of meningioma s/p surgery, hx of DVT of RLE and s/p IVC filter (now removed), hx of cerebral amyloid angiopathy, hx of colitis, who now presents with stroke-like symptoms. Pt seen in ED room by herself, she is able to provide history and also discussed w/ ED provider. Pt reports she and her came home from grocery store and as she bent over to take off her shoes she became dizzy, and her arms and fingers felt numb. She slid down to the floor and when on the floor she noticed she could not move her right leg. EMS was called. There was also report of slurred speech. When pt arrived to ED her symptoms seem to be improved/ resolved. Then later while in ED she again had some slurred speech and Tele stroke was initiated. CT head, CTA head and neck were obtained. Per telestroke - pt was given plavix 300 and aspirin 81. Currently pt is sitting up in bed. She was able to walk to bathroom with her nurse nearby. She feels well overall and her speech is clear. Pt seems to be without any neurological symptoms at this time. She also denies any fever, chills, headache, chest pain, shortness of breath, abdominal pain, n/v. Allergies Allergy/AdvReac Type Severity Reaction Status Date / Time No Known Drug Allergies Allergy Unknown . Verified 01/07/24 11:09 Fish Allergy Unknown TONGUE Uncoded 01/07/24 11:09 SWELLING WITH [facility] FAM[facility] Home Medications Medication Instructions Recorded Confirmed Type Saccharomyces boulardii 250 mg 250 mg PO BID 07/17/23 11/12/24 History capsule (Digest Probiotic (S.boulardii)) acetaminophen 325 mg capsule 975 mg PO Q6H PRN Pain 07/17/23 11/12/24 History (Tylenol) alendronate 70 mg tablet (Fosamax) 70 mg PO .Weekly 07/17/23 11/12/24 History amoxicillin 500 mg capsule 2,000 mg PO UD PRN dental 07/17/23 11/12/24 History appointment cholecalciferol (vitamin D3) 25 25 mcg PO DAILY 07/17/23 11/12/24 History mcg (1,000 unit) capsule cyclosporine 0.05 % eye drops 0 drp ophthalmic (eye) BID 07/17/23 11/12/24 History (Restasis MultiDose) fexofenadine 180 mg tablet 180 mg PO DAILY 07/17/23 11/12/24 History (Allergy Relief (fexofenadine)) Past Med/Surg History Problem List Stroke-like symptoms (Acute) MRSA (methicillin resistant staph aureus) culture positive Venous ulcer of left leg (Acute) Chronic venous insufficiency (Chronic) Medical History Right leg DVT History of meningioma Surgical History S/P IVC filter Hx of resection of meningioma Social History Smoking Status: Never smoker Hx Alcohol Use: Yes Alcohol Intake Frequency: Monthly or Less Hx Substance Use: No Preferred Language: Nicaraguan Communication Ability: Effective Visual Impairment: No Limitations Hearing Ability: Normal It Architecture Consultant Required: No Beliefs That Will Affect Care: None marital status: Current Living Situation: Spouse current occupational status: retired How many Children do You have: 2 How many Children do You have Comment: Not local Feels Safe at Home: Yes Diet: regular caffeine: Yes during the past year weight has: decreased > 10 lbs Dental Care, Regularly: Yes Physical Activity Frequency: 1-2 Times per Week Seatbelt Use: always Sunscreen Use: No Assistive Devices: Cane and Glasses Review of Systems Review of Systems: All systems reviewed & are unremarkable except as noted in HPI & below Physical Exam Constitutional: WD/WN, vitals as above Eyes: PERRL, conjunctivae normal, anicteric sclerae ENMT: external ear and nose normal, oropharynx normal Neck: trachea midline, no thyromegaly Respiratory: normal respiratory effort, lungs clear to auscultation Cardiovascular: RRR, no murmur, no edema Chest (Breasts): Chest: normal inspection of chest Gastrointestinal (Abdomen): normal bowel sounds, soft, nontender, no hepatosplenomegaly Musculoskeletal: no cyanosis or clubbing, extremities motor strength 5/5 Skin: no rashes, warm and dry Neurologic: PERRL, EOMI, accommodation nl, no face palsy, no dysarthria (moves all extremities, speech fluent, answers appropriately) Psychiatric: A+Ox3, euthymic affect Results & Data Results & Data Vital Signs (Past 12 Hours) Vital Signs Temp Pulse Pulse Resp BP BP Pulse Ox 11/12/24 14:45 99 H 19 167/122 H 98 11/12/24 14:40 98 H 11/12/24 14:30 101 H 23 168/111 H 99 11/12/24 14:15 96 H 16 171/105 H 97 11/12/24 14:05 94 H 21 182/102 H 97 11/12/24 13:53 36.7 C 95 H 19 188/105 H 98 11/12/24 13:35 11/12/24 13:35 11/12/24 13:35 O2 Del Method 11/12/24 14:45 Room Air 11/12/24 14:40 11/12/24 14:30 Room Air 11/12/24 14:15 Room Air 11/12/24 14:05 Room Air 11/12/24 13:53 Room Air 11/12/24 13:35 Room Air 11/12/24 13:35 Room Air 11/12/24 13:35 Room Air Laboratory Results 11/12/24 11/12/24 11/12/24 Range/Units 14:06 14:00 13:57 WBC 4.97 (4.8-10.8) K/ul RBC 4.33 (4.20-5.40) M/uL Hgb 12.7 (12.0-16.0) g/dl POC Hgb 13.6 (12.0-16.0) g/dl Hct 38.6 (37.0-47.0) % POC Hct 40 (37-47) % MCV 89.1 (80.0-100.0) fL MCH 29.3 (25.0-34.0) pg MCHC 32.9 (32.0-36.0) g/dL RDW Std Deviation 44.3 (36.4-46.3) fL RDW Coeff of Dawna 13.5 (11.5-14.5) % Plt Count 164 (130-400) K/uL MPV 10.3 (9.4-12.4) fL PT 10.3 (9.0-12.0) Seconds INR 0.9 (0.9-1.1) APTT 25 (21-31) Seconds PTT Ratio 0.9 POC Sodium 137 (135-144) mmol/L Sodium 135 L (136-145) mmol/L POC Potassium 4.3 (3.3-5.0) mmol/L Potassium 4.6 (3.5-5.1) mmol/L POC Chloride 101 (101-112) mmol/L Chloride 103 (98-107) mmol/L Carbon Dioxide 28 (21-32) mmol/L POC Total CO2 26 (24-31) mmol/L Anion Gap 4 (3-11) POC Anion Gap 15.0 L (16-25) mmol/L POC BUN 21 H (7-18) mg/dl BUN 20 (6-23) mg/dl Creatinine 0.58 L (0.6-1.2) mg/dl POC Creatinine 0.6 (0.6-1.3) mg/dl Est Cr Clr Drug Dosing 62.4 ml/min eGFR 88.08 BUN/Creatinine Ratio 34.5 H (10-20) Glucose 111 H (70-99(Fasting)) mg/dl POC Glucose (other) 105 H (70-99) mg/dl Calcium 9.2 (8.6-10.3) mg/dl POC Ioniz Calcium Douglas 1.20 (1.12-1.32) mmol/l Magnesium 1.8 (1.7-2.4) mg/dl Total Bilirubin 0.5 (0.2-1.0) mg/dl AST 20 (13-39) U/L ALT 14 (7-52) U/L Alkaline Phosphatase 64 (34-104) U/L Troponin I High Sens 3.1 (0-14) pg/ml Total Protein 6.7 (6.0-8.3) gm/dl Albumin 3.9 (3.4-5.0) gm/dl Globulin 2.8 (2.5-4.0) gm/dl Albumin/Globulin Ratio 1.4 (0.9-2) Diagnostic Findings CT head Findings: There is diffuse cerebral atrophy, within expected limits for the patient's age. Areas of decreased attenuation are seen within the periventricular white matter, likely representing chronic small vessel ischemic disease. There is an old right parietal lobe infarct. There is no definite sign of acute infarction. No intracranial hemorrhage is evident. No definite mass lesion is seen on this noncontrast examination. There is no midline shift or other form of herniation. No hydrocephalus is seen. No fracture is identified. The orbits and the visualized paranasal sinuses appear unremarkable. The mastoid air cells appear clear. Impression: 1. Cerebral atrophy and chronic small vessel ischemic disease 2. Old right parietal lobe infarct 3. No definite acute pathology CTA head and neck No definite stenosis or aneurysm of the intracranial arteries. No definite stenosis of the neck arteries. Indeterminate thyroid nodules. A follow up thyroid ultrasound could be obtained.
[2024-11-12] MEDS ORDERED: ACETAMINOPHEN 325 MG TAB PO PRN (16:37)
[2024-11-12] MEDS: LABETALOL HCL IV 5 MG/ML 20ML IV STA (19:39)
--- NOTE | 2024-11-12 21:15 | Magnetic Resonance Report ---
MRI BRAIN WITHOUT CONTRAST TECHNIQUE: An MRI examination of the brain was performed utilizing sagittal and axial T1-weighted images as well as axial T2-weighted, FLAIR, gradient echo and diffusion-weighted images. INDICATION: Stroke COMPARISON: CT examinations from the same day. FINDINGS: There is a small (5 mm) area of diffusion restriction in the right anterior lower cerebellum. Age-related involutional changes of brain and advanced chronic white matter ischemic changes The ventricular, sulcal and cisternal spaces are normal in caliber. There is no evidence of intracranial mass lesion, hydrocephalus, infarct, extra-axial fluid collection, restricted diffusion or parenchymal hemorrhage. The cerebellar tonsils are normal in position. The pituitary gland is not enlarged. The major arterial vascular structures of the skull base are patent. No intraorbital soft tissue mass lesion is observed. Cataract surgeries. Transfer to the visualized paranasal sinuses are aerated. Mastoids are aerated. IMPRESSION: Small (5mm) area of diffusion restriction in the right anterior lower cerebellum likely representing an acute/subacute infarct. Electronically signed by Stevie Michaud 11-12-2024 9:15 PM
[2024-11-13 06:03] LABS: Hematocrit (blood only) 39.6 % (37.0-47.0); Hemoglobin 12.5 g/dl (12.0-16.0); Mean Corpuscular Hemoglobin 28.3 pg (25.0-34.0); Mean Corpuscular Volume 89.6 fL (80.0-100.0); Platelet Count 187 K/uL (130-400); RDW Standard Deviation 44.5 fL (36.4-46.3); Red Blood Count 4.42 M/uL (4.20-5.40); White Blood Count 4.40 K/ul (4.8-10.8)
[2024-11-13 06:23] LABS: Anion Gap 5.0 (3-11); Blood Urea Nitrogen 14.0 mg/dl (6-23); Calcium 9.0 mg/dl (8.6-10.3); Carbon Dioxide 30.0 mmol/L (21-32); Chloride 105.0 mmol/L (98-107); Cholesterol 195.0 mg/dl (0-200); Creatinine Clr Calc Pharmacy 64.2 ml/min; Glucose 92.0 mg/dl (70-99(Fasting)); HDL Cholesterol 75.0 mg/dl; Magnesium 1.9 mg/dl (1.7-2.4); Potassium 3.9 mmol/L (3.5-5.1); Sodium 140.0 mmol/L (136-145); Triglycerides 87.0 mg/dl (0-150)
[2024-11-13 07:33] LABS: Hemoglobin A1C 5.8 % (4.5-5.6)
[2024-11-13 08:53] VITALS: RESP 20
[2024-11-13] MEDS: ASPIRIN 81 MG ECTAB PO SCH (09:17)
--- NOTE | 2024-11-13 10:49 | Neurology Consultation ---
Date of Consultation November 13, 2024 Assessment & Plan (1) Stroke with cerebral ischemia: Ness Pedersen is an 84 yo F presenting with vertigo found to have a tiny R cerebellar stroke. Suspect embolic though with her CAA treatment options are limited, we discussed the risks and benefits of a daily 81mg aspirin and she agreed to continue this medication. DAPT risk outweighs benefit in my opinion given the CAA. Cardiac event monitor could be considered but as she would not be a candidate for anticoagulation and likely not for appendage closure, if she does have afib it would be informative only. -- Recommend aspirin 81mg daily -- Recommend lipitor 40mg daily for LDL goal <70 -- Cardiac event monitor -- Neurology follow-up in 4-6 weeks Telehealth Consultation Telehealth Information Telehealth Information: I performed this visit using a real-time telehealth connection between my location and the patients location ([facility]). After connecting through interactive tele-video, patient was identified by name and date of and/or wristband check.Patient (or authorized healthcare branch customer service representative) was informed that this was a telemedicine visit and it was being conducted confidentially over secure lines. My office door was closed and no one else was present in the room with me.Patient (or authorized healthcare branch customer service representative) provided consent to proceed with the visit, expressed an understanding of privacy and security of the telemedicine visit, and gave permission to have a hospital branch customer service representative in the room in order to assist with the visit and to conduct portions of the visit, as needed. I informed the patient (or authorized healthcare branch customer service representative) that I reviewed their record and presented the opportunity for them to ask any questions regarding the visit today. The patient agreed to participate. History of Present Illness Reason for Consultation: Stroke Requesting Physician: Dr. Martinez Attending Physician: Shanta Martinez MD History of Present Illness Ness Pedersen is an 84 yo F presenting with an episode of dizziness and numbness yesterday. She reported sitting down at home and developed severe vertigo followed by whole body numbness and was unable to stand. EMS was called and she felt better enroute to the ED. She has a history of CAA and was not taking any antithrombotics. She had a DVT in the past treated with an IVC filter due to the CAA. Denies any fall yesterday, feels well now and has been able to ambulate. She lives with her son and who can help her at home. No new symptoms since admission. Allergies Allergy/AdvReac Type Severity Reaction Status Date / Time No Known Drug Allergies Allergy Unknown . Verified 01/07/24 11:09 Fish Allergy Unknown TONGUE Uncoded 01/07/24 11:09 SWELLING WITH [facility] FAM[facility] Home Medications Medication Instructions Recorded Confirmed Type Saccharomyces boulardii 250 mg 250 mg PO BID 07/17/23 11/12/24 History capsule (Digest Probiotic (S.boulardii)) acetaminophen 325 mg capsule 975 mg PO Q6H PRN Pain 07/17/23 11/12/24 History (Tylenol) alendronate 70 mg tablet (Fosamax) 70 mg PO .Weekly 07/17/23 11/12/24 History amoxicillin 500 mg capsule 2,000 mg PO UD PRN dental 07/17/23 11/12/24 History appointment cholecalciferol (vitamin D3) 25 25 mcg PO DAILY 07/17/23 11/12/24 History mcg (1,000 unit) capsule cyclosporine 0.05 % eye drops 0 drp ophthalmic (eye) BID 07/17/23 11/12/24 History (Restasis MultiDose) fexofenadine 180 mg tablet 180 mg PO DAILY 07/17/23 11/12/24 History (Allergy Relief (fexofenadine)) Patient History Medical History Right leg DVT History of meningioma Surgical History S/P IVC filter Hx of resection of meningioma Social History Smoking Status: Never smoker Hx Alcohol Use: No Hx Substance Use: No Preferred Language: Czech Communication Ability: Effective Visual Impairment: No Limitations Hearing Ability: Normal Laryngologist Required: No Beliefs That Will Affect Care: None marital status: Current Living Situation: Spouse and Family Current Living Situation Comment: spouse and son current occupational status: retired How many Children do You have: 2 How many Children do You have Comment: Not local Feels Safe at Home: Yes Safety Concerns: Feels Safe At This Time Diet: regular caffeine: Yes during the past year weight has: decreased > 10 lbs Dental Care, Regularly: Yes Physical Activity Frequency: 1-2 Times per Week Seatbelt Use: always Sunscreen Use: No Assistive Devices: Cane and Glasses Review of Systems +dizziness, resolved Physical Exam Neurological Examination: Mental Status: Awake and alert. Oriented to person, place, and time. Fluent. Comprehension intact. Affect appropriate. Cranial Nerves: II: pupils 3/3 to 2/2, zavaleta grossly intact. III/IV/: Versions intact without nystagmus, no gaze preference. V: Facial sensation symmetric to light touch VII: Facial expression symmetric Motor: Strength was symmetric and antigravity throughout. Pronator drift was absent. There were no abnormal movements. Sensory: Sensation to light touch was intact. Coordination: Finger to nose was intact Results & Data Vital Signs (Past 12 Hours) Vital Signs Temp Pulse Resp BP Pulse Ox O2 Del Method 11/13/24 08:52 36.6 C 76 20 152/82 H 95 Room Air 11/13/24 02:51 36.4 C L 69 18 132/76 95 Room Air Laboratory Results Abnormal lab results 11/12/24 11/12/24 11/13/24 Range/Units 14:00 14:06 05:29 WBC 4.40 L (4.8-10.8) K/ul MCHC 31.6 L (32.0-36.0) g/dL Sodium 135 L (136-145) mmol/L POC Anion Gap 15.0 L (16-25) mmol/L POC BUN 21 H (7-18) mg/dl Creatinine 0.58 L 0.52 L (0.6-1.2) mg/dl BUN/Creatinine Ratio 34.5 H 26.9 H (10-20) Glucose 111 H (70-99(Fasting)) mg/dl POC Glucose (other) 105 H (70-99) mg/dl Hemoglobin A1c 5.8 H (4.5-5.6) % Diagnostic Findings Head CT 11/12/24 13:31 Clinical History: Possible stroke Technique: Axial computed tomography images were obtained of the brain without intravenous contrast. Findings: There is diffuse cerebral atrophy, within expected limits for the patient's age. Areas of decreased attenuation are seen within the periventricular white matter, likely representing chronic small vessel ischemic disease. There is an old right parietal lobe infarct. There is no definite sign of acute infarction. No intracranial hemorrhage is evident. No definite mass lesion is seen on this noncontrast examination. There is no midline shift or other form of herniation. No hydrocephalus is seen. No fracture is identified. The orbits and the visualized paranasal sinuses appear unremarkable. The mastoid air cells appear clear. Impression: 1. Cerebral atrophy and chronic small vessel ischemic disease 2. Old right parietal lobe infarct 3. No definite acute pathology These findings were discussed with Dr. Baldwin at 1:57 PM on 11/12/2024 Electronically signed by Lio Carroll 11-12-2024 13:58 PM Brain MRI 11/12/24 16:42 MRI BRAIN WITHOUT CONTRAST TECHNIQUE: An MRI examination of the brain was performed utilizing sagittal and axial T1-weighted images as well as axial T2-weighted, FLAIR, gradient echo and diffusion-weighted images. INDICATION: Stroke COMPARISON: CT examinations from the same day. FINDINGS: There is a small (5 mm) area of diffusion restriction in the right anterior lower cerebellum. Age-related involutional changes of brain and advanced chronic white matter ischemic changes The ventricular, sulcal and cisternal spaces are normal in caliber. There is no evidence of intracranial mass lesion, hydrocephalus, infarct, extra-axial fluid collection, restricted diffusion or parenchymal hemorrhage. The cerebellar tonsils are normal in position. The pituitary gland is not enlarged. The major arterial vascular structures of the skull base are patent. No intraorbital soft tissue mass lesion is observed. Cataract surgeries. Transfer to the visualized paranasal sinuses are aerated. Mastoids are aerated. IMPRESSION: Small (5mm) area of diffusion restriction in the right anterior lower cerebellum likely representing an acute/subacute infarct. Electronically signed by Stevie Michaud 11-12-2024 9:15 PM
[2024-11-13 11:40] VITALS: BP 130/88; PULSE 88; TEMP 98.2; O2SAT 96
--- NOTE | 2024-11-13 14:53 | Discharge Summary ---
Discharge Summary Date of Service November 13, 2024 Principal Dx & Hospital Course #1 = Principal Diagnosis (1) Stroke-like symptoms: Ms. Pedersen is an 84 yo woman with hx of meningioma s/p resection, cerebral amyloid angiopathy, GI bleed/colitis, previously needed IVC filter for RLE DVT who is admitted for evaluation of vertigo and found to have a small right cerebellar stroke. Patient's symptoms resolved upon arrival to hospital and strength in extremities returned. Patient evaluated by PT/OT who recommended home health PT/OT. Neurology recommends asa and statin. Patient not a great candidate for AC given amyloid angiopathy, but it is recommended to obtain Zio patch. On day of discharge, patient was eating well, voiding without difficulty, and ambulating utilizing a walker. Patient discharge to home with home health services. Will cont. 81 mg daily Start lipitor 40mg daily Thyroid nodules noted on CT - incidental finding - follow up as outpt Notes For Next Care Provider Thyroid nodules noted on CT - incidental finding - follow up as outpt DAPT contraindicated given CAA Consider monitoring analyst, per Neurology : "Cardiac event monitor could be considered but as she would not be a candidate for anticoagulation and likely not for appendage closure, if she does have afib it would be informative only" Medication Changes From Visit Daily asa 81mg daily Star atorvastatin 40mg qhs Admission HPI Per Admitting Provider 84 yo F w/ hx of meningioma s/p surgery, hx of DVT of RLE and s/p IVC filter (now removed), hx of cerebral amyloid angiopathy, hx of colitis, who now presents with stroke-like symptoms. Pt seen in ED room by herself, she is able to provide history and also discussed w/ ED provider. Pt reports she and her came home from grocery store and as she bent over to take off her shoes she became dizzy, and her arms and fingers felt numb. She slid down to the floor and when on the floor she noticed she could not move her right leg. EMS was called. There was also report of slurred speech. When pt arrived to ED her symptoms seem to be improved/ resolved. Then later while in ED she again had some slurred speech and Tele stroke was initiated. CT head, CTA head and neck were obtained. Per telestroke - pt was given plavix 300 and aspirin 81. Currently pt is sitting up in bed. She was able to walk to bathroom with her nurse nearby. She feels well overall and her speech is clear. Pt seems to be without any neurological symptoms at this time. She also denies any fever, chills, headache, chest pain, shortness of breath, abdominal pain, n/v. Admission Exam Per Admitting Provider Constitutional: WD/WN, vitals as above Eyes: PERRL, conjunctivae normal, anicteric sclerae ENMT: external ear and nose normal, oropharynx normal Neck: trachea midline, no thyromegaly Respiratory: normal respiratory effort, lungs clear to auscultation Cardiovascular: RRR, no murmur, no edema Chest (Breasts): Chest: normal inspection of chest Gastrointestinal (Abdomen): normal bowel sounds, soft, nontender, no hepatosplenomegaly Musculoskeletal: no cyanosis or clubbing, extremities motor strength 5/5 Skin: no rashes, warm and dry Neurologic: PERRL, EOMI, accommodation nl, no face palsy, no dysarthria (moves all extremities, speech fluent, answers appropriately) Psychiatric: A+Ox3, euthymic affect Discharge Exam Constitutional WD/WN, vitals as above Respiratory normal respiratory effort, lungs clear to auscultation Cardiovascular RRR, no murmur, no edema Musculoskeletal no cyanosis or clubbing, extremities motor strength 5/5 Neurologic PERRL, EOMI, accommodation nl, no face palsy, no dysarthria Updated Medication List Medication Instructions Recorded Confirmed Type Saccharomyces boulardii 250 mg 250 mg PO BID 07/17/23 11/12/24 History capsule (Digest Probiotic (S.boulardii)) acetaminophen 325 mg capsule 975 mg PO Q6H PRN Pain 07/17/23 11/12/24 History (Tylenol) alendronate 70 mg tablet (Fosamax) 70 mg PO .Weekly 07/17/23 11/12/24 History amoxicillin 500 mg capsule 2,000 mg PO UD PRN dental 07/17/23 11/12/24 History appointment cholecalciferol (vitamin D3) 25 25 mcg PO DAILY 07/17/23 11/12/24 History mcg (1,000 unit) capsule cyclosporine 0.05 % eye drops 0 drp ophthalmic (eye) BID 07/17/23 11/12/24 History (Restasis MultiDose) fexofenadine 180 mg tablet 180 mg PO DAILY 07/17/23 11/12/24 History (Allergy Relief (fexofenadine)) aspirin 81 mg tablet,delayed 81 mg PO QAM #30 tabs 11/13/24 Rx release atorvastatin 40 mg tablet 40 mg PO HS #30 tabs 11/13/24 Rx Hospital Stay Data Consultations 11/12/24 15:28 ED Decision to Admit Stat 11/12/24 16:39 Consult Neurology Routine Diagnostic Imagining Performed 11/12/24 13:31 CT head/brain wo con Stat CTA head w con [CT angio head w con] Stat CTA neck with con [CT angio neck with con] Stat 11/12/24 16:42 MR brain wo con Routine Pending Results Patient Have Any Pending Studies at Discharge: No Discharge Instructions Given to Patient (Per Discharging Provider) You were admitted for vertigo found to have a tiny right cerebellar stroke. You were seen by physical therapy which recommends home PT You were seen by Neurology who recommends the following: -- Recommend aspirin 81mg daily -- Recommend lipitor 40mg at bedtime You will be set up an appointment with your PCP who will coordinate and event monitor you will be called for Neurology follow-up in 4-6 weeks Total Time Total Time Spent Total Time Spent (In Minutes): 45
--- NOTE | 2024-11-14 11:01 | CT Scan Report ---
Technique: Axial computed tomography images were obtained of the brain after the administration of intravenous contrast according to the CT angiogram protocol Findings: There is mild multifocal calcified plaque within the cavernous and supraclinoid segments of the internal carotid arteries bilaterally, without stenosis No definite stenosis or aneurysm is seen of the anterior, middle, or posterior cerebral artery circulations. The tip of the basilar artery is mildly prominent, without clear overt aneurysm Impression: No definite stenosis or aneurysm of the intracranial arteries These findings were discussed with Dr. Baldwin at 1:57 PM on 11/12/2024 Electronically signed by Lio Carroll 11-12-2024 13:58 PM
--- NOTE | 2024-11-16 07:46 | XRay Report ---
Technique: A frontal view of the chest was obtained Findings: There are no confluent pulmonary infiltrates. The heart size is at the upper limit of normal. No pleural effusion or pneumothorax is seen. There is suspected mild pulmonary edema No fracture is noted. No foreign body is seen Impression: Mild pulmonary edema Electronically signed by Lio Carroll 11-12-2024 2:20 PM
--- NOTE | 2024-11-17 10:50 | CT Scan Report ---
CT angio neck with con Technique: Axial computed tomography images were obtained of the neck after the administration of intravenous contrast according to the CT angiogram protocol Findings: No stenosis is seen in the common carotid arteries bilaterally. There is mild plaque within the carotid bulbs bilaterally, without significant stenosis. The remainder of the internal carotid arteries appear patent bilaterally. There is mild plaque in the proximal left external carotid artery. There is mild plaque in the distal vertebral arteries bilaterally, without significant stenosis. The visualized thoracic aorta appears unremarkable. 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 There are multiple nodules in the right thyroid lobe. Impression: 1. No definite stenosis of the neck arteries 2. Indeterminate thyroid nodules. A follow-up thyroid ultrasound could be obtained. These findings were discussed with Dr. Baldwin at 1:57 PM on 11/12/2024 [facility]
== END 2024-11-13 16:08 | disposition home health service (06) | DRG 65 ==
LOC: ED 13:29 → 2S 16:37 → INTOOBSV 16:37 → SUATTDRO 16:37 → 2S 18:28
DX: Z79.899 Other long term (current) drug therapy; I63.441 Cerebral infarction due to embolism of right cerebellar artery; Z91.013 Allergy to seafood